=== PATIENT | female | born 1990 | race Caucasian/White ===

== ENCOUNTER 2017-10-27 03:49 | Emergency (ER) | payer MEDICAID ==
[~2017-10-27] VITALS: Ht 152.4 cm; Wt 46.4 kg
[2017-10-27 03:57] VITALS: Ht 152.4 cm; Wt 46.4 kg
[2017-10-27] MEDS ORDERED: morphine 4 MG/ML VIAL IV STA (04:29)
[2017-10-27] MEDS ORDERED: SOD CHLORIDE 0.9% 1,000 ML IV STA (04:29)
[2017-10-27] MEDS ORDERED: ONDANSETRON 4 MG INJ IV STA (04:29)
[2017-10-27 05:20] LABS: URINE BLOOD (Dip) POC 1+ (NEGATIVE)
[2017-10-27 05:41] LABS: BASOPHIL # 0.1 10^3/ul (0.0-0.1); BASOPHILS % 0.8 % (0.0-2.0); EOSINOPHILS % 0.6 % (0.0-7.0); HEMATOCRIT 38.6 % (37.0-47.0); HEMOGLOBIN 12.7 g/dl (12.0-16.0); LYMPHOCYTES # 1.1 10^3/ul (0.8-2.9); LYMPHOCYTES % 15.9 % (15.0-51.0); MEAN CORPUSCULAR HEMOGLOBIN 28.3 pg (29.0-33.0); MEAN CORPUSCULAR HGB CONC 32.9 g/dl (32.0-37.0); MEAN CORPUSCULAR VOLUME 86.2 fl (82.0-101.0); MEAN PLATELET VOLUME 10.9 fl (7.4-10.4); MONOCYTE # 0.5 10^3/ul (0.3-0.9); MONOCYTES % 6.7 % (0.0-11.0); NEUTROPHIL # 5.5 10^3/ul (1.6-7.5); NEUTROPHILS % 75.7 % (39.0-77.0); PLATELET COUNT 311 10^3/UL (140-415); RED BLOOD COUNT 4.48 10^6/ul (4.20-5.40); RED CELL DISTRIBUTION WIDTH 12.3 % (11.5-14.5); WHITE BLOOD COUNT 7.2 10^3/ul (4.8-10.8)
[2017-10-27 05:47] LABS: ALBUMIN 4.1 g/dl (3.3-4.9); ALBUMIN/GLOBULIN RATIO 1.32; BILIRUBIN,INDIRECT 0.1 mg/dl (0-1.1); BILIRUBIN,TOTAL 0.1 mg/dl (0.2-1.3); CALCIUM 9.3 mg/dl (8.4-10.2); CREATININE 0.77 mg/dl (0.44-1.00); POTASSIUM 4.1 mmol/L (3.5-5.1); TOTAL PROTEIN 7.2 g/dl (6.1-8.1)
[2017-10-27 05:50] LABS: ADD UMIC YES; UR ASCORBIC ACID NEGATIVE (NEGATIVE); UR BILIRUBIN (Dip) NEGATIVE (NEGATIVE); UR BLOOD (Dip) 1+ mg/dL (NEGATIVE); UR CLARITY CLEAR (CLEAR); UR COLOR YELLOW (YELLOW); UR GLUCOSE (Dip) NEGATIVE (NEGATIVE); UR KETONES (Dip) NEGATIVE (NEGATIVE); UR LEUKOCYTE ESTERASE (Dip) TRACE Leu/ul (NEGATIVE); UR MUCUS FEW /HPF (NONE SEEN); UR NITRITE (Dip) NEGATIVE (NEGATIVE); UR RBC 6 /HPF (0-5); UR SPECIFIC GRAVITY (Dip) 1.029 (1.003-1.030); UR SQUAMOUS EPITHELIAL CELL FEW /HPF (FEW); UR TOTAL PROTEIN (Dip) NEGATIVE (NEGATIVE); UR UROBILINOGEN (Dip) NEGATIVE (NEGATIVE)
--- NOTE | 2017-10-27 06:14 | ERD ---
ER Documentation Chief Complaint Chief Complaint mid abdominal pain/back pain x 2 hours HPI 27-year-old female with no significant previous medical history presents the ED complaining of being awakened from sleep with acute onset of severe, sharp, nonradiating epigastric and right upper quadrant pain. Nausea and one episode of nonbloody nonbilious emesis but no diarrhea or constipation. No dysuria, polyuria, hematuria or flank pain. Denies vaginal discharge or bleeding. No chest pain, palpitations or shortness of breath. No fevers or chills. ROS All systems reviewed and are negative except as per history of present illness. Allergies Allergies: Coded Allergies: No Known Drug Allergies (Verified Allergy, Unknown, 10/27/17) PMhx/Soc Reviewed in chart. As per HPI. Medical and Surgical Hx: pt denies Medical Hx, pt denies Surgical Hx History of Surgery: No Hx Neurological Disorder: No Hx Respiratory Disorders: No Hx Cardiac Disorders: No Hx Psychiatric Problems: No Hx Miscellaneous Medical Probl: No Hx Alcohol Use: No Hx Substance Use: No Hx Tobacco Use: No Smoking Status: Never smoker FmHx No diabetes or asthma Physical Exam Vitals Vital Signs Date Time Temp Pulse Resp B/P Pulse Ox O2 Delivery O2 Flow Rate FiO2 10/27/17 03:57 98.4 81 20 102/51 97 Physical Exam Const: Alert, moderate distress due to pain. Head: Atraumatic Eyes: Normal Conjunctiva. Anicteric ENT: Normal External Ears, Nose and Mouth. Pharynx is clear without erythema or exudate Neck: Full range of motion. Nontender. No lymphadenopathy. Resp: Clear to auscultation bilaterally Cardio: Regular rate and rhythm, no murmurs Abd: Soft, bowel sounds are present, moderate epigastric and right upper quadrant tenderness. No right or left lower quadrant tenderness. No rebound or guarding. Negative Elva'y sign. Skin: No petechiae or rashes Back: No midline or flank tenderness Ext: No cyanosis, or edema Neur: Awake and alert. No focal deficit observed. Psych: Cooperative. Patient does not appear anxious or depressed. Result Diagram: 10/27/1712 10/27/17 0512 Results 24 hrs Laboratory Tests Test 10/27/17 05:12 10/27/17 05:20 White Blood Count 7.210^3/ul Red Blood Count 4.4810^6/ul Hemoglobin 12.7g/dl Hematocrit 38.6% Mean Corpuscular Volume 86.2fl Mean Corpuscular Hemoglobin 28.3pg Mean Corpuscular Hemoglobin Concent 32.9g/dl Red Cell Distribution Width 12.3% Platelet Count 00031^3/UL Mean Platelet Volume 10.9fl Neutrophils % 75.7% Lymphocytes % 15.9% Monocytes % 6.7% Eosinophils % 0.6% Basophils % 0.8% Nucleated Red Blood Cells % 0.0/100WBC Neutrophils # 5.510^3/ul Lymphocytes # 1.110^3/ul Monocytes # 0.510^3/ul Eosinophils # 0.010^3/ul Basophils # 0.110^3/ul Nucleated Red Blood Cells # 0.010^3/ul Urine Color YELLOW Urine Clarity CLEAR Urine pH 5.0 Urine Specific Sage 1.029 Urine Ketones NEGATIVEmg/dL Urine Nitrite NEGATIVEmg/dL Urine Bilirubin NEGATIVEmg/dL Urine Urobilinogen NEGATIVEmg/dL Urine Leukocyte Esterase TRACELeu/ul Urine Microscopic RBC 6/HPF Urine Microscopic WBC 4/HPF Urine Squamous Epithelial Cells FEW/HPF Urine Calcium Oxalate Crystals FEW/HPF Urine Mucus FEW/HPF Urine Hemoglobin 1+mg/dL Urine Glucose NEGATIVEmg/dL Urine Total Protein NEGATIVEmg/dl Sodium Level 141mmol/L Potassium Level 4.1mmol/L Chloride Level 104mmol/L Carbon Dioxide Level 26mmol/L Anion Gap 15 Blood Urea Nitrogen 14mg/dl Creatinine 0.77mg/dl Glucose Level 90mg/dl Calcium Level 9.3mg/dl Total Bilirubin 0.1mg/dl Direct Bilirubin 0.00mg/dl Indirect Bilirubin 0.1mg/dl Aspartate Amino Transf (AST/SGOT) 20IU/L Alanine Aminotransferase (ALT/SGPT) 33IU/L Alkaline Phosphatase 59IU/L Total Protein 7.2g/dl Albumin 4.1g/dl Globulin 3.10g/dl Albumin/Globulin Ratio 1.32 Lipase 57U/L Bedside Urine pH (LAB) 6.0 Bedside Urine Protein (LAB) Negative Bedside Urine Glucose (UA) Negative Bedside Urine Ketones (LAB) Trace Bedside Urine Blood 1+ Bedside Urine Nitrite (LAB) Negative Bedside Urine Leukocyte Esterase (L Negative Current Medications Medications (Trade) Dose Ordered Sig/Kalee Route PRN Reason Start Time Stop Time Status Last Admin Dose Admin Sodium Chloride (NS) 1,000 ml @ 1,000 mls/hr Q1H STAT IV 10/27/17 04:29 10/27/17 05:28 DC 10/27/17 05:16 Morphine Sulfate (morphine) 4 mg ONCE STAT IV 10/27/17 04:29 10/27/17 04:30 DC 10/27/17 05:15 Ondansetron HCl (Zofran Inj) 4 mg ONCE STAT IV 10/27/17 04:29 10/27/17 04:30 DC 10/27/17 05:15 Ketorolac Tromethamine (Toradol) 15 mg ONCE STAT IV 10/27/17 06:20 10/27/17 06:22 DC 10/27/17 06:32 PROCEDURE: ULTRASOUND LIMITED ABDOMEN CLINICAL INDICATION: 27-year-old female with abdominal pain. TECHNIQUE: Multiple sonographic of the right upper quadrant of the abdomen were obtained. The images were reviewed on a PACS workstation. COMPARISON: None. FINDINGS: The proximal inferior vena cava and proximal abdominal aorta are unremarkable. The pancreas is partially visualized and is otherwise without abnormal echogenicity. The liver displays normal echogenicity. The liver measures 12.3 cm in length. No evidence of intrahepatic biliary ductal dilatation is seen. The portal and hepatic veins are unremarkable. The gallbladder contains multiple mobile shadowing stones with the largest measuring 80 mm. The gallbladder wall thickness is within normal limits measuring 3.1 mm. No pericholecystic fluid is seen. The common bile duct measures 4.9 mm and is not dilated. The right kidney displays normal echogenicity. The right kidney measures 8.6 cm in maximal length. No caliectasis or hydronephrosis is seen. No free fluid is seen. IMPRESSION: Cholelithiasis. .Teo Dhillon MD, MD Date Time Electronically viewed and signed by .Teo Dhillon MD, on 10/27/2017 07:52 .M/ Procedures/MDM DOCUMENTS REVIEWED: ED nurse, no prior records REEXAMINATION/REEVALUATION: Time: 07:50. Doing well. Pain resolved. Abdomen soft nontender. MEDICAL DECISION MAKIN-year-old female with no significant previous medical history presents the ED complaining of being awakened from sleep with acute onset of severe, sharp, nonradiating epigastric and right upper quadrant pain. Ultrasound reveals cholelithiasis without evidence of cholecystitis. No evidence of cholangitis, pancreatitis or hepatitis. Not . Pain resolved with intravenous hydration and antiemetics. Abdominal exam is benign without significant tenderness, rebound, guarding or signs of peritonitis. Stable for discharge of precautionary instructions and outpatient follow-up as counseled. Counseled patient regarding diagnostic workup, diagnosis and need for followup. Understands to return to ED if symptoms recur, worsen or any other concerns. Departure Diagnosis: Primary Impression: Acute abdominal pain in right upper quadrant Additional Impressions: Cholelithiasis Cholelithiasis location: gallbladder Cholecystitis presence: without cholecystitis Biliary obstruction: without biliary obstruction Qualified Code : K80.20 - Calculus of gallbladder without cholecystitis without obstruction Biliary colic Condition: Stable (Improved) ALEISHA CLARK MD Oct 27, 2017 06:14
[2017-10-27] MEDS ORDERED: KETOROLAC 15 MG INJ IV STA (06:20)
--- NOTE | 2017-10-27 07:52 | RADRPT ---
PROCEDURE: ULTRASOUND LIMITED ABDOMEN CLINICAL INDICATION: 27-year-old female with abdominal pain. TECHNIQUE: Multiple sonographic of the right upper quadrant of the abdomen were obtained. The imag es were reviewed on a PACS workstation. COMPARISON: None. FINDINGS: The proximal inferior vena cava and proximal abdominal aorta are unremarkable. The pancreas is partially visualized and is otherwise without abnormal echogenicity. The liver displays normal echogenicity. The liver measures 12.3 cm in length. No evidence of intrah epatic biliary ductal dilatation is seen. The portal and hepatic veins are unremarkable. The gallbladder contains multiple mobile shadowing stones with the largest measuring 80 mm. The gall bladder wall thickness is within normal limits measuring 3.1 mm. No pericholecystic fluid is seen. T he common bile duct measures 4.9 mm and is not dilated. The right kidney displays normal echogenicity. The right kidney measures 8.6 cm in maximal length. N o caliectasis or hydronephrosis is seen. No free fluid is seen. IMPRESSION: Cholelithiasis. .Teo Dhillon MD, Date Time Electronically viewed and signed by .Teo Dhillon MD, on 10/27/2017 07:52 .M/
[2017-10-27] MEDS ORDERED: TRAM50TA2 PO (08:03)
[2017-10-27] MEDS ORDERED: IBUP-1542 PO (08:03)
[2017-10-27] MEDS ORDERED: ONDA4TAB8 PO (08:04)
[2017-10-27 08:13] VITALS: BP 114/56; PULSE 78; RESP 20
== END 2017-10-27 08:14 | disposition home or self-care (01) ==
LOC: E/R 03:49
DX: K80.70 Calculus of gallbladder and bile duct without cholecystitis without obstruction (principal)
CPT/HCPCS: 36415; 76705; 80053; 81001; 83690; 85025; 96374; 96375; J1885; J2270; J2405; J7030; Z7502; 81003